=== PATIENT | female | born 1985 | race Caucasian/White ===

== ENCOUNTER → 2016-11-18 | Day surgery (SDC) | payer MEDICAID ==
[~2016-11-18] VITALS: Ht 160 cm; Wt 129.0 kg
[~2016-11-18] MED LIST: ENDOCET 5-3251 EACH PO; NICOTINE PATCH1 EAC2 TRANS; PROVENTIL OR V6.7 GM INH; ROLAIDS CHEWAB1 EACH PO; TYLENOL325 MG PO
== END ==
LOC: GPOC 11-16 15:00 → GEND 06:33 → EDSTATUS 07:30 → GEND 07:30
PROC: 0F9 Hepatobiliary System and Pancreas, Drainage (ICD-10-PCS; principal; 2016-11-18)
DX: K80.50 Calculus of bile duct without cholangitis or cholecystitis without obstruction (principal); J45.909 Unspecified asthma, uncomplicated; Z79.899 Other long term (current) drug therapy
CPT/HCPCS: C1769; J0690; J1100; J2001; J2405; J7030

== ENCOUNTER 2016-12-30 16:51 | Emergency (ER) | payer MEDICAID ==
--- NOTE | ~2016-12-30 | ER ---
PATIENT'S NAME: SABRINA EATON [facility] AGE: 31 Y [address] ROOM: [place] [address] LOCATION: [facility] ADMIT DATE: 12/30/2016 ER/Outpatient Report DISCHARGE DATE: 12/30/2016 FAMILY PHYSICIAN: Sophia Quintero ATTENDING PHYSICIAN: Sharon Fregoso Time of Arrival: 1651 hours. Time of Evaluation: 1700 hours. IDENTIFICATION: A 31-year-old female. CHIEF COMPLAINT: Toothache. HISTORY OF PRESENT ILLNESS: The patient has swelling of the left upper cheek and a bad tooth. She has tried ibuprofen with no relief. She is currently . She is a probably 2 months . She had a positive test at the doctor's office and is supposed to go back to see Dr. Quintero on Wednesday. She has had no fever or chills. ALLERGIES: NO KNOWN DRUG ALLERGIES. CURRENT MEDICATIONS: None. MEDICAL PROBLEMS: Asthma. PRIOR SURGERIES: Cholecystectomy on October 14. The patient has had 2 normal vaginal deliveries, she has a 4-month-old and a 15-year-old. SOCIAL HISTORY: The patient lives here in [place]. She is currently unemployed. Tobacco use 1/4 to 1/2 pack per day for 13 years. Alcohol use, denies. Drug use, denies. REVIEW OF SYSTEMS: All systems reviewed and negative other than what is noted in the HPI. PHYSICAL EXAMINATION: VITAL SIGNS: Height 5 feet and 3 inches, weight 128 kg, blood pressure 126/64, pulse 91, respirations 14, temperature 98, and saturations 95% on room PATIENT'S NAME: SABRINA EATON [facility] AGE: 31 Y [address] ROOM: [place] [address] LOCATION: [facility] ADMIT DATE: 12/30/2016 ER/Outpatient Report DISCHARGE DATE: 12/30/2016 FAMILY PHYSICIAN: Sophia Quintero ATTENDING PHYSICIAN: Sharon Fregoso air. GENERAL: A 31-year-old female in no acute distress. HEENT: Head: Normocephalic and atraumatic. Ears: TMs translucent both ears. Nose: Mucosa pink, no lesions. Mouth: The patient has poor dentition, but has a broken tooth on the left upper second molar, which is tender to palpation. There is no surrounding erythema. She is tender to palpation over the left maxilla with some mild swelling. No erythema. Oropharynx benign. NECK: Supple. No lymphadenopathy. LUNGS: Clear to auscultation. HEART: Regular rate and rhythm. No murmur, rub, or gallop. ABDOMEN: Bowel sounds present. Soft, nondistended, and nontender. SKIN: [place], warm, and dry. No lesions or rashes noted. IMPRESSION: 1. Toothache with possible abscess, left upper. 2. Early intrauterine . PLAN: Amoxicillin 500 mg 2 tablets b.i.d. for 7 days. Soft diet. Tylenol for pain. Follow up with Dr. Quintero as scheduled on Wednesday. Follow up sooner if any problems or concerns and she will need to get in with a dentist. The patient understands and agrees and all questions have been answered. MD TEN JULES/adriana /[id number] d: 12/30/16 2351 t: 01/01/17 0759, OUTPATIENT REPORT
== END 2016-12-30 17:36 | disposition disaster alternative care site (69) ==
LOC: GMED 16:51
DX: O9A.219 Injury, poisoning and certain other consequences of external causes complicating pregnancy, unspecified trimester (principal); S02.5XXA Fracture of tooth (traumatic), initial encounter for closed fracture; O99.330 Smoking (tobacco) complicating pregnancy, unspecified trimester; F17.210 Nicotine dependence, cigarettes, uncomplicated; Z90.49 Acquired absence of other specified parts of digestive tract; X58.XXXA Exposure to other specified factors, initial encounter

== ENCOUNTER 2017-01-18 18:30 | Emergency (ER) | payer MEDICAID ==
--- NOTE | ~2017-01-18 | ER ---
PATIENT'S NAME: SABRINA EATON [facility] AGE: 31 Y [address] ROOM: [place] [address] LOCATION: [facility] ADMIT DATE: 01/18/2017 ER/Outpatient Report DISCHARGE DATE: 01/18/2017 FAMILY PHYSICIAN: Sophia Quintero ATTENDING PHYSICIAN: Sharon Fregoso Time of Arrival: 1830 hours. Time Seen: 1842 hours. IDENTIFICATION: A 31-year-old female. CHIEF COMPLAINT: Abdominal pain. HISTORY OF PRESENT ILLNESS: The patient is a 31-year-old, G5, P2 female at 10 and 4/7th weeks gestation by LMP consistent with ultrasound, who presents with back and abdominal pain for "a couple of days." She had told the nurse that her pain was ongoing for several weeks. She said it has been worse over the last couple of days. She has low back pain which she describes as sharp, stabbing, intermittent pain, nothing seems to make it better or worse. She has tried heating pad and Tylenol with no relief. She denies dysuria. No increased frequency of urination, no hematuria, no history of kidney stones. Her last menstrual period was September 13. Her due date per ultrasound 3 days ago is August 12, 2017. She has had no vaginal bleeding. She does have some minimal clear vaginal discharge. She has mid to low abdominal pain which she describes as sharp, stabbing, and intermittent. Again, she is a G5, P2 spontaneous AB2 female. She has had 2 normal vaginal deliveries without complications. SOCIAL HISTORY: The patient is currently unemployed. She smokes 3/4th pack per day. Alcohol use, denies. Drug use, denies. FAMILY HISTORY: No pertinent family history identified. REVIEW OF SYSTEMS: All systems reviewed and negative other than what is noted in the HPI. PHYSICAL EXAMINATION: VITAL SIGNS: Height 5 feet 3 inches; weight 2129 kg; blood pressure 125/101, recheck was 117/56; pulse 90; respirations 16; temperature 97.9; and saturations are 100% on room air. GENERAL: A 31-year-old female, in no acute distress. PATIENT'S NAME: SABRINA EATON [facility] AGE: 31 Y [address] ROOM: [place] [address] LOCATION: [facility] ADMIT DATE: 01/18/2017 ER/Outpatient Report DISCHARGE DATE: 01/18/2017 FAMILY PHYSICIAN: Sophia Quintero ATTENDING PHYSICIAN: Sharon Fregoso HEENT: Unremarkable. LUNGS: Clear to auscultation. HEART: Regular rate and rhythm. ABDOMEN: Soft, nondistended, and nontender. SKIN: [place], warm, and dry. No lesions or rashes noted. NEURO: Normal. No focal deficit. No lower extremity edema. PELVIC: External genitalia normal. Vagina normal. Cervix parous. No cervical motion tenderness. Uterus, approximately 10-week size uterus. No adnexal masses or tenderness. The patient has a mild amount of discharge. She was unable to void initially, so we did attempt to do a cath UA with a quick cath. The area was prepped in a sterile fashion. Attempts at inserting the catheter were unsuccessful at the urethral meatus. When questioned further, she said she has had trouble emptying her bladder today and she has been drinking fluids. She also states she has trouble emptying her bladder for her whole life, that is not new. We did try with Pediatric 5-[place] tube with again no ability to pass the catheter, we just met resistance. Bladder scan revealed 129 mL fluid in her bladder. She later then voided 10 mL, but felt that she was empty at that time. UA is negative. Sodium 139, potassium 3.8, chloride 106, CO2 27, BUN 11, creatinine 0.7, and blood sugar 83. Liver enzymes normal. Wet prep negative. GC and chlamydia pending. White count 11.4 with normal differential. IMPRESSION: 1. Pelvic pain. 2. Early intrauterine . PLAN: Fluids and rest. No heavy lifting. Pelvic rest. Follow up with [facility] in 1-2 days. Follow up sooner if any problems or concerns. The patient understands and agrees, and all questions have been answered. SHARON FREGOSO MD CAR/modl /[id number] d: 01/19/172 t: 05/03/17 0549, OUTPATIENT REPORT
[2017-01-18 19:07] LABS: BASOPHIL % 0.2 %; EOSINOPHIL # 0.1 K/uL (0.0-0.5); EOSINOPHIL % 0.7 %; HEMOGLOBIN 12.6 g/dL (11.0-15.0); IMMATURE GRANULOCYTE # 0.1 K/uL (0.0-0.3); IMMATURE GRANULOCYTE % 0.4 %; LYMPHOCYTE # 2.7 K/uL (0.8-4.0); LYMPHOCYTE % 23.6 %; MCH 30.3 pg (27.0-34.0); MCHC 32.3 gm/dL (32.0-36.5); MCV 93.8 fl (83.0-98.0); MONOCYTE # 0.7 K/uL (0.0-1.0); MONOCYTE % 6.3 %; MPV 12.2 fl (9.4-12.4); NEUTROPHIL # (ANC) 7.8 K/uL (1.8-7.8); NEUTROPHIL % 68.8 %; NRBC % 0 /100WBC (0-0.00); PLATELET COUNT 207 K/uL (150-450); RBC 4.16 M/uL (3.50-5.00); RDW-CV 12.5 % (11.9-14.6); WBC 11.4 K/uL (4.0-11.0)
[2017-01-18 19:24] LABS: ALBUMIN 3.5 gm/dL (3.5-5.0); ALK PHOS 63 IU/L (33-138); ALT 14 IU/L (12-78); ANION GAP 9.8 (10.0-19.0); AST 7 IU/L (10-40); BLOOD UREA NITROGEN 11 mg/dL (6-24); CALCIUM 8.9 mg/dL (8.5-10.5); CHLORIDE 106 mMol/L (96-110); CO2 27 mMol/L (22-32); CREATININE 0.7 mg/dL (0.5-1.1); ESTIMATED GFR (MDRD EQUATION) > 60; POTASSIUM 3.8 mMol/L (3.7-5.1); SODIUM 139 mMol/L (135-145); TOTAL PROTEIN 7.2 g/dL (6.0-8.4)
[2017-01-18 19:32] LABS: TOTAL BILIRUBIN 0.5 mg/dL (0.0-1.5)
[2017-01-18 19:33] LABS: BILIRUBIN URINE NEGATIVE (NEGATIVE); BLOOD URINE NEGATIVE /UL (NEGATIVE); COLOR URINE YELLOW (YELLOW); GLUCOSE URINE NEGATIVE (NEGATIVE); KETONE URINE NEGATIVE (NEGATIVE); LEUKOCYTES URINE NEGATIVE /UL (NEGATIVE); NITRITE URINE NEGATIVE (NEGATIVE); PROTEIN URINE NEGATIVE (NEGATIVE); SPEC GRAVITY URINE 1.025 (1.003-1.035); TURBIDITY URINE 1+ (CLEAR); UROBILINOGEN URINE 1 mg/dL (NORMAL)
[2017-01-18 20:16] LABS: RBC URINE NEGATIVE #/HPF (NEGATIVE); WBC URINE 0-2 #/HPF (NEGATIVE)
[2017-01-18 20:17] LABS: BACTERIA URINE NEGATIVE (NEGATIVE); MUCUS URINE 1+ (NEGATIVE)
== END 2017-01-18 20:10 | disposition disaster alternative care site (69) ==
LOC: GMED 18:30
PROVIDERS: Family Medicine
PROC: 4A0D7LZ Measurement of Urinary Volume, Via Natural or Artificial Opening (ICD-10-PCS; principal; 2017-01-18)
DX: O99.89 Other specified diseases and conditions complicating pregnancy, childbirth and the puerperium (principal); O99.331 Smoking (tobacco) complicating pregnancy, first trimester; R10.2 Pelvic and perineal pain; Z3A.01 Less than 8 weeks gestation of pregnancy

== ENCOUNTER → 2017-01-22 | Outpatient (CLI) | payer MEDICAID | END | disposition disaster alternative care site (69) | LOC: GRAD 10:24 | DX: Z33.1 Pregnant state, incidental (principal); Z3A.10 10 weeks gestation of pregnancy ==

== ENCOUNTER 2017-01-30 14:47 | Emergency (ER) | payer MEDICAID ==
--- NOTE | ~2017-01-30 | ER ---
PATIENT'S NAME: SABRINA EATON [facility] AGE: 31 Y [address] ROOM: [place] [address] LOCATION: ED ADMIT DATE: 01/30/2017 ER/Outpatient Report DISCHARGE DATE: 01/30/2017 FAMILY PHYSICIAN: Sophia Quintero ATTENDING PHYSICIAN: Kwame Macias TIME SEEN: 1515 hours. CHIEF COMPLAINT: Left-sided low back pain. HISTORY OF PRESENT ILLNESS: The patient is a 31-year-old female, said she is approximately 3 months. She said she had a sudden onset of kind of left back pain, described as sharp, worse with movement. She denies any falls or injuries. She has had no fever, chills, dysuria, or vaginal bleeding. ALLERGIES: NO MEDICINAL ALLERGIES. CURRENT MEDICATIONS: 1. vitamins. 2. Proventil inhaler p.r.n. MEDICAL HISTORY: Asthma, EDC is 08/20/2017. SOCIAL HISTORY: A smoker less than a half pack a day. No alcohol. REVIEW OF SYSTEMS: GENERAL: Denies fevers or chills. HEAD AND EENT: No complaints of headache or neck pain. RESPIRATORY: No cough or wheezing. GASTROINTESTINAL: No abdominal pain. No nausea or vomiting. MUSCULOSKELETAL: Includes left-sided low back pain, worse with movement. GENITOURINARY: Again no burning frequency, urgency, or bleeding. PHYSICAL EXAMINATION: VITAL SIGNS: Blood pressure was 138/63, her temperature was 98.5, her respiratory rate was 16, O2 saturation was 96%, and her weight was 127 kilos. GENERAL APPEARANCE: Alert, obvious no distress. HEAD AND EENT: Unremarkable. LUNGS: Clear. PATIENT'S NAME: SABRINA EATON [facility] AGE: 31 Y [address] ROOM: [place] [address] LOCATION: ED ADMIT DATE: 01/30/2017 ER/Outpatient Report DISCHARGE DATE: 01/30/2017 FAMILY PHYSICIAN: Sophia Quintero ATTENDING PHYSICIAN: Kwame Macias ABDOMEN: Obese but soft. BACK: Some slight tenderness in kind of a low left side and worse with movement. NEUROLOGIC: Had good sensation to her lower extremities. ASSESSMENT: Left-sided low back pain, probable musculoskeletal. PLAN: Home. Rest. Limit activities. Ice or heat to the area. Tylenol for pain if needed. Return to the emergency room if she develops fever, vomiting, or any concerns. ALEXANDR ZAVALA FOR MD VENKATA FERRER/modl /[id number] d: 01/30/172000 t: 02/10/17 0911, OUTPATIENT REPORT
== END 2017-01-30 15:46 | disposition disaster alternative care site (69) ==
LOC: GMED 14:47
DX: O99.89 Other specified diseases and conditions complicating pregnancy, childbirth and the puerperium (principal); M54.5 Low back pain; O99.519 Diseases of the respiratory system complicating pregnancy, unspecified trimester; J45.909 Unspecified asthma, uncomplicated; O99.330 Smoking (tobacco) complicating pregnancy, unspecified trimester; F17.210 Nicotine dependence, cigarettes, uncomplicated

== ENCOUNTER 2017-02-08 19:03 | Emergency (ER) | payer MEDICAID ==
--- NOTE | ~2017-02-08 | ER ---
PATIENT'S NAME: SABRINA EATON [facility] AGE: 31 Y [address] ROOM: [place] [address] LOCATION: [facility] ADMIT DATE: 02/08/2017 ER/Outpatient Report DISCHARGE DATE: 02/08/2017 FAMILY PHYSICIAN: Sophia Quintero ATTENDING PHYSICIAN: Sandeep Oleary Time of Arrival: 1926 hours. Time of Exam: 1940 hours. CHIEF COMPLAINT: Cough, vaginal discharge. HISTORY OF PRESENT ILLNESS: The patient states she was seen at [facility] yesterday, 02/07/2017, diagnosed with bronchitis, got started on Zithromax and prednisone. She states that she is having leakage every time she stands and every time she coughs. She states that her last period was October of this year. She was diagnosed with a positive and is seeing Dr. Quintero for . She states she has not felt the baby move. She states that the fluid is clear in nature. She has not had any cramping. ALLERGIES: NO KNOWN ALLERGIES. CURRENT MEDICATIONS: On her chart and reviewed by me. PAST MEDICAL HISTORY: Recurrent bronchitis. PAST SURGERIES: Cholecystectomy. SOCIAL HISTORY: She does smoke half a pack per day. Denies use of drugs or alcohol. REVIEW OF SYSTEMS: All negative other than those mentioned in the HPI. PHYSICAL EXAMINATION: VITAL SIGNS: She is 127 kg. Blood pressure is 194/88, pulse of 91, respirations 20, temperature of 99.1, and O2 saturations 100% on room air. GENERAL: She is awake, alert, and oriented x4. SKIN: [place], warm, and dry. HEENT: TMs are dull. Nasal is boggy. Oropharynx is clear. PATIENT'S NAME: SABRINA EATON [facility] AGE: 31 Y [address] ROOM: [place] [address] LOCATION: [facility] ADMIT DATE: 02/08/2017 ER/Outpatient Report DISCHARGE DATE: 02/08/2017 FAMILY PHYSICIAN: Sophia Quintero ATTENDING PHYSICIAN: Sandeep Oleary NECK: Supple. No lymphadenopathy. RESPIRATIONS: Even and nonlabored. Lung sounds are coarse throughout. No wheezing noted. HEART: Regular rate and rhythm. ABDOMEN: Soft and nondistended. Bowel sounds are present. DIAGNOSTIC DATA: Ultrasound of the pelvis was completed. Tech reports the patient is 13 weeks 3 days, heart rate 157, amniotic fluid is appropriate, and cervix appears closed. IMPRESSION: 1. Normal intrauterine . 2. History of bronchitis. PLAN: Home, rest, fluids. Continue current medications as prescribed. Follow up with her primary provider in 2-3 days or return to the ER as needed. She verbalized understanding. LORENA YOON APRN FOR MD EMELYN RODRÍGUEZ/adirana /[id number] d: 02/09/17 0156 t: 02/13/17 1243, OUTPATIENT REPORT
== END 2017-02-08 20:32 | disposition disaster alternative care site (69) ==
LOC: GMED 19:03
DX: O99.511 Diseases of the respiratory system complicating pregnancy, first trimester (principal); J40 Bronchitis, not specified as acute or chronic; O99.331 Smoking (tobacco) complicating pregnancy, first trimester; F17.210 Nicotine dependence, cigarettes, uncomplicated; Z90.49 Acquired absence of other specified parts of digestive tract; Z3A.13 13 weeks gestation of pregnancy